=== PATIENT | female | born 1990 | race African-American/Black ===

== ENCOUNTER 2017-01-10 20:17 | Emergency (ER) | payer MEDICARE | END 2017-01-10 22:55 | disposition home or self-care (01) | LOC: ER 20:17 | DX: M25.562 Pain in left knee (principal); X50.1XXA Overexertion from prolonged static or awkward postures, initial encounter; Y92.524 Gas station as the place of occurrence of the external cause; F17.210 Nicotine dependence, cigarettes, uncomplicated | CPT/HCPCS: 73564; 96372; 99070; 99283-25 ==

== ENCOUNTER 2017-03-28 13:01 | Emergency (ER) | payer OTHER | END 2017-03-28 13:40 | disposition home or self-care (01) | LOC: ER 13:01 | PROC: 3E0234Z Introduction of Serum, Toxoid and Vaccine into Muscle, Percutaneous Approach (ICD-10-PCS; principal; 2017-03-28) | DX: S61.012A Laceration without foreign body of left thumb without damage to nail, initial encounter (principal); W26.0XXA Contact with knife, initial encounter; Y93.G1 Activity, food preparation and clean up; Y92.512 Supermarket, store or market as the place of occurrence of the external cause; Y99.0 Civilian activity done for income or pay; F17.210 Nicotine dependence, cigarettes, uncomplicated; Z23 Encounter for immunization | CPT/HCPCS: 90471; 90715; 99070; 99282-25; 99283 ==